=== PATIENT | female | born 1970 ===

== ENCOUNTER 2018-09-08 13:57 | Outpatient (CLI) | payer OTHER | END 2018-09-08 14:15 | disposition home or self-care (01) | LOC: OFIC 805 13:57 | DX: H61.23 Impacted cerumen, bilateral (principal); H93.13 Tinnitus, bilateral ==

== ENCOUNTER 2018-10-13 14:28 | Outpatient (CLI) | payer OTHER ==
[~2018-10-13] VITALS: Ht 152.4 cm; Wt 89.8 kg
== END 2018-10-13 14:35 | disposition home or self-care (01) ==
LOC: OFIC 805 14:28
DX: H93.13 Tinnitus, bilateral (principal); M26.69 Other specified disorders of temporomandibular joint

== ENCOUNTER 2018-12-17 11:47 | Outpatient (CLI) | payer OTHER ==
[~2018-12-17] VITALS: Ht 152.4 cm; Wt 88.9 kg
== END 2018-12-17 13:50 | disposition home or self-care (01) ==
LOC: OFIC 805 11:47
DX: H93.13 Tinnitus, bilateral (principal); M26.69 Other specified disorders of temporomandibular joint; H90.3 Sensorineural hearing loss, bilateral; R42 Dizziness and giddiness